=== PATIENT | female | born 1970 | race Caucasian/White ===

== ENCOUNTER 2020-01-11 17:31 | Emergency (ER) | payer OTHER ==
[2020-01-11] MEDS ORDERED: HYDROmorphone 1 MG/ML CARPUJECT IM STA (18:26)
--- NOTE | 2020-01-11 18:29 | ED Physician Documentation ---
History of Present Illness - Stated complaint Stated Complaint: LEFT SHOULDER INJURY - Chief complaint Chief Complaint: Ext Problem - History obtained from History obtained from: Patient - History of Present Illness Timing: Prior to arrival - Additonal information Additional information: 49-year-old female presents to the emergency department for evaluation of acute left anterior shoulder pain that occurred prior to arrival. She was jogging on a sports track at the local [employer] [place] when her puppy got under her feet. She fell backwards onto her left shoulder. She did not lose consciousness or strike her head. Injury to the left arm or left shoulder. Patient is left-hand dominant pt denies any pertinent pmh Review of Systems Constitutional: reports: Reviewed and negative Eyes: reports: Reviewed and negative Ears: reports: Reviewed and negative Throat: reports: Reviewed and negative Cardiac: reports: Reviewed and negative Respiratory: reports: Reviewed and negative GI: reports: Reviewed and negative Skin: reports: Reviewed and negative Musculoskeletal: reports: Joint pain (left shoulder) Neurologic: reports: Reviewed and negative PD PAST MEDICAL HISTORY - Present Medications Home Medications: Ambulatory Orders Medication Instructions Recorded Confirmed Ibuprofen [Motrin] 600 mg PO Q6H PRN #30 tab 01/11/20 - Allergies Allergies/Adverse Reactions: Allergies Allergy/AdvReac Type Severity Reaction Status Date / Time No Known Drug Allergies Allergy Verified 01/11/20 18:22 PD ED PE EXPANDED - HEENT HEENT: Atraumatic, PERRL - Extremities Extremities: Left shoulder (Full abduction and abduction of left shoulder though painful. No deformity. Tenderness at the left AC joint. Normal flexion extension of elbow and wrist against resistance. 2+ radial pulse.) Results - Vitals Vitals: Vital Signs - 24 hr 01/11/20 18:13 Temperature 36.7 C Heart Rate 71 Respiratory 20 Rate Blood Pressure 146/91 H O2 Saturation 99 Oxygen O2 Source Room air - Rads (name of study) left shoulder Radiology: Final report received (No fracture or dislocation) PD MEDICAL DECISION MAKING - ED course Complexity details: reviewed results, re-evaluated patient, considered differential, d/w patient ED course: 49-year-old female presents the emergency department with acute left shoulder pain after fall this evening. She mainly has pain at the left AC joint without obvious deformity. With encouragement she is able to fully range her shoulder. X-ray does not show any obvious fracture or dislocation. She was given 0.5 mg of Dilaudid here in the ED with moderate relief of pain. I suspect a contusion at this time. I will recommend ibuprofen at home for analgesia and emergent return precautions Departure - Departure Disposition: 01 Home, Self Care Clinical Impression: Left anterior shoulder pain Fall Qualifiers: Encounter type: initial encounter Qualified Code(s): W19.XXXA - Unspecified fall, initial encounter Condition: Stable Record reviewed to determine appropriate education?: Yes Instructions: ED Contusion Upper Extr Ch Prescriptions: Ibuprofen [Motrin] 600 mg PO Q6H PRN #30 tab PRN Reason: Pain Comments: Katja the x-ray of your shoulder does not show any fracture or dislocation. You most likely have bruised the arm or shoulder joint after the fall. I want to encourage you to continue to gently move and range your shoulder to prevent it from getting frozen. I expect that after 2 to 3 days your pain will start to slowly improve. Please ice the shoulder and take ibuprofen as prescribed with food. If at any point you have worsening pain, cannot move the shoulder, have fevers redness or swelling please return to the ER for a second look
--- NOTE | 2020-01-11 20:12 | XRAY Report ---
PROCEDURE: Shoulder 3 View LT INDICATIONS: S/P GLF x 40 min TECHNIQUE: 3 views of the shoulder were acquired. COMPARISON: None. FINDINGS: Bones: No fractures or dislocations. No suspicious bony lesions. Visualized ribs appear intact. Soft tissues: No suspicious soft tissue calcifications. Multiple surgical clips are demonstrated in the left chest wall. IMPRESSION: 1. No fracture or dislocation. Reviewed by: Eris Ruiz MD on 01/11/2020 8:11 PM PDT Approved by: Eris Ruiz MD on 01/11/2020 8:11 PM PDT Station ID: [id number]
[2020-01-11 20:32] VITALS: BP 132/82
== END 2020-01-11 20:32 | disposition home or self-care (01) ==
LOC: ED 17:31
DX: M25.512 Pain in left shoulder (principal); W01.0XXA Fall on same level from slipping, tripping and stumbling without subsequent striking against object, initial encounter; Y93.02 Activity, running; Y92.39 Other specified sports and athletic area as the place of occurrence of the external cause
CPT/HCPCS: 73030; 96372; 99283; J1170